=== PATIENT | female | born 1975 | race Caucasian/White ===

== ENCOUNTER 2016-08-03 10:15 | Emergency (ER) | payer OTHER ==
[~2016-08-03] VITALS: Ht 172.7 cm; Wt 88.5 kg
[2016-08-03 10:27] VITALS: BP 130/73
[2016-08-03] MEDS ORDERED: DIPHTH,PERTUSS(ACELL),TET TOX 0.5 ML DISP.SYRIN. VAX IM ONE (11:00)
--- NOTE | 2016-08-03 11:10 | PHYS DOC ---
Past Medical History Past Medical History: Other Additional Past Medical Histor: HYSTOPLASMOSIS Past Surgical History: Cholecystectomy, Tubal ligation, Other Additional Past Surgical Histo: L EYE SX, R FOOT SX Alcohol Use: Rarely Drug Use: None Adult General Chief Complaint Chief Complaint: FINGER INJURY HPI HPI Patient is a 41 year old female with no significant medical history who presents with right index finger infection that began a week ago from a hangnail. Patient states she [facility] and was given a prescription for Bactrim. Patient presents today stating she would like the finger drained. She states she herself attempted to drain it and small amount of white drainage came out of the finger. Patient denies any fever. Review of Systems Review of Systems Constitutional: Denies fever or chills [] Eyes: Denies change in visual acuity, redness, or eye pain [] Musculoskeletal: Denies back pain or joint pain [] Integument: Right index finger infection Neurologic: Denies headache, focal weakness or sensory changes [] Endocrine: Denies polyuria or polydipsia [] Current Medications Current Medications Current Medications Medications (Trade) Dose Ordered Sig/Abad Start Time Stop Time Status Last Admin Dose Admin Diphtheria/ Tetanus/Acell Pertussis (Boostrix) 0.5 ml ONCE ONCE 08/03/16 11:00 08/03/16 11:01 DC Allergies Allergies Allergies Coded Allergies Type Severity Reaction Last Updated Verified No Known Drug Allergies 08/03/16 No Physical Exam Physical Exam Constitutional: Well developed, well nourished, no acute distress, non-toxic appearance. [] HENT: Normocephalic, atraumatic, bilateral external ears normal, oropharynx moist, no oral exudates, nose normal. [] Eyes: PERRLA, EOMI, conjunctiva normal, no discharge. [] Abdomen: Bowel sounds normal, soft, no tenderness, no masses, no pulsatile masses. [] Skin: Right index finger medial aspect with a tiny area of dry scabbing. There is redness around the cuticle. There is no fluctuance to the finger. +2 right radial pulse. Adequate radial sensation to the right index finger. Cap refill less than 2 seconds the right index finger. There is nothing to drain in the finger Back: No tenderness, no CVA tenderness. [] Extremities: No tenderness, no cyanosis, no clubbing, ROM intact, no edema. [] Neurologic: Alert and oriented X 3, normal motor function, normal sensory function, no focal deficits noted. [] Psychologic: Affect normal, judgement normal, mood normal. [] Current Patient Data Vital Signs Vital Signs Date Time Temp Pulse Resp B/P Pulse Ox O2 Delivery O2 Flow Rate FiO2 08/03/16 10:27 98.7 92 16 96 Room Air 98.7 EKG EKG [] Radiology/Procedures Radiology/Procedures [] Course & Med Decision Making Course & Med Decision Making Pertinent Labs and Imaging studies reviewed. (See chart for details) Patient is in the ED with the right index finger infection. There is nothing to drain from the finger. She is already on Bactrim which this started yesterday. She was given tetanus shot in the ED. Encouraged to soak her right index finger in Epsom salt twice a day. Encouraged her to continue taking Bactrim. Follow-up with her own doctor in one week. Dragon Disclaimer Dragon Disclaimer This electronic medical record was generated, in whole or in part, using a voice recognition dictation system. Departure Departure Impression: Primary Impression: Cellulitis of right index finger Disposition: HOME, SELF-CARE Condition: STABLE Patient Instructions: Fingertip Infections Additional Instructions: You were seen for right index finger infection. We encourage you to follow-up with your doctor in one week. Continue taking the Bactrim. Soak the finger in Epsom salts twice a day. Keep it clean and dry. YESI UJSTIN APRN Aug 03, 2016 11:10
== END 2016-08-03 11:40 | disposition home or self-care (01) ==
LOC: ER 10:15
DX: L03.011 Cellulitis of right finger (principal)
CPT/HCPCS: 90471; 90715; 99283-25